=== PATIENT | male | born 1960 | race Asian ===

== ENCOUNTER 2017-09-21 18:46 | Emergency (ER) | payer OTHER, MEDICARE ==
[~2017-09-21] VITALS: Ht 162.6 cm; Wt 80.7 kg
--- NOTE | 2017-09-21 18:55 | NUR ---
Jelly farris in [facility] - 09/21/17 at 1856 by LETICIA PT CARRIED BY FATHER CINTHIA ETIENNE 1
--- NOTE | 2017-09-21 18:56 | NUR ---
PATIENT AMBULATED TO ER BED 10. Addendum: 09/21/17 at 4 by MEDDCV PATIENT AMBULATED TO ER BED 3.
[2017-09-21 18:59] VITALS: BP 97/64
--- NOTE | 2017-09-21 19:00 | NUR ---
PATIENT IS A 57 Y/O MALE WHO PRESENTS TO THE ED C/O BACK PAIN. PT STATES THAT HE HAS A HISTORY OF KIDNEY STONES AND IT FEELS LIKE IT IS STARTING UP AGAIN. PT REPORTS 6/10 SHARP BILATERAL FLANK PAIN THAT RADIATES TO THE LOWER ABD. PT DENIES CP, SOB, N/V/D. PT AAOX4, RR EVEN/UNLABORED. PT REPOSITIONED FOR COMFORT, BED IN LOWEST POSITION. ANN CRENSHAW NOTIFIED. WILL CONTINUE TO MONITOR. Addendum: 09/21/17 at 2009 by MEDDCV PATIENT IS A 57 Y/O MALE WHO PRESENTS TO THE ED C/O BACK PAIN. PT STATES THAT HE HAS A HISTORY OF KIDNEY STONES AND IT FEELS LIKE IT IS STARTING UP AGAIN. PT REPORTS 6/10 SHARP BILATERAL BACK PAIN THAT RADIATES TO THE LOWER ABD. PT DENIES CP, SOB, N/V/D. PT AAOX4, RR EVEN/UNLABORED. PT REPOSITIONED FOR COMFORT, BED IN LOWEST POSITION. ER MD DR. CRENSHAW NOTIFIED. WILL CONTINUE TO MONITOR.
--- NOTE | 2017-09-21 19:20 | NUR ---
UA COLLECTED AND SENT TO LAB.
[2017-09-21 20:07] LABS: BASOPHILS # (AUTO) 0.3 K/uL (0.00-0.22); EOSINOPHILS # (AUTO) 0.4 K/uL (0-0.4); HEMATOCRIT 39.5 % (36-52); LYMPHOCYTES # (AUTO) 1.5 K/uL (2.0-11.5); MEAN CORPUSCULAR HEMOGLOBIN 31 pg (27-31); MEAN CORPUSCULAR HGB CONC 33 g/dL (33-37); MEAN CORPUSCULAR VOLUME 93.2 fL (80-94); MONOCYTES # (AUTO) 0.8 K/uL (0.8-1.0); NEUTROPHILS # (AUTO) 4.3 K/uL (1.8-7.7); PLATELET COUNT (AUTO) 232 K/uL (140-450); RED BLOOD CELL COUNT(AUTO) 4.24 MIL/uL (4.20-6.10); RED CELL DISTRIBUTION WIDTH 13.4 % (11.6-13.7); WHITE BLOOD COUNT (AUTO) 7.3 K/uL (4.8-10.8)
[2017-09-21] MEDS ORDERED: KETOROLAC 30 MG/ML VIAL ONE (20:21)
[2017-09-21 20:33] LABS: ANION GAP 11.2 (8-16); CARBON DIOXIDE 29.2 mmol/L (21-32); CREATININE 1.7 mg/dL (0.7-1.3); POTASSIUM 4.4 mmol/L (3.5-5.1)
[2017-09-21] MEDS ORDERED: KETOROLAC 30 MG/ML VIAL IVP ONE (20:35)
[2017-09-21 20:40] LABS: ALBUMIN 3.7 g/dL (3.4-5.0); TOTAL BILIRUBIN 0.5 mg/dL (0.0-1.0)
--- NOTE | 2017-09-21 20:40 | NUR ---
PATIENT MOVED TO ER BED 1.
[2017-09-21 20:41] LABS: APPEARANCE,URINE CLEAR (CLEAR); BILIRUBIN,URINE NEGATIVE (NEGATIVE); BLOOD, URINE NEGATIVE (NEGATIVE); COLOR,URINE YELLOW (YELLOW); LEUKOCYTE ESTERASE ,URINE NEGATIVE (NEGATIVE); NITRITE, URINE NEGATIVE (NEGATIVE); UGLUCOSE NEGATIVE (NEGATIVE)
--- NOTE | 2017-09-21 21:23 | NUR ---
PT SENT TO CT WITH TECH VIA W/C AAOX4
--- NOTE | 2017-09-21 22:00 | NUR ---
PATIENT RESTING AT THIS TIME. FAMILY AT BEDSIDE.
--- NOTE | 2017-09-21 22:59 | NUR ---
PATIENT D/C BY DR. CRENSHAW.
[2017-09-21 23:00] VITALS: BP 121/75
--- NOTE | 2017-09-21 23:00 | NUR ---
Patient discharged with v/s stable. Written and verbal after care instructions given and explained. Patient alert, oriented and verbalized understanding of instructions. Ambulatory with steady gait. All questions addressed prior to discharge. ID band removed. Patient advised to follow up with PMD. Rx of NAPROSYN 500MG given. Patient educated on indication of medication including possible reaction and side effects. Opportunity to ask questions provided and answered.
== END 2017-09-21 23:00 | disposition home or self-care (01) ==
LOC: MED 18:46
DX: M51.17 Intervertebral disc disorders with radiculopathy, lumbosacral region (principal); I10 Essential (primary) hypertension; Z88.1 Allergy status to other antibiotic agents; Z88.8 Allergy status to other drugs, medicaments and biological substances
CPT/HCPCS: 36415; 72131; 74018; 74176; 80053; 80061; 81003; 85025; 96374; 99285; J1885

== ENCOUNTER 2021-07-11 19:06 | Emergency (ER) | payer OTHER, MEDICARE ==
[~2021-07-11] VITALS: Ht 165.1 cm; Wt 78.5 kg
[2021-07-11 19:28] VITALS: BP 96/64
--- NOTE | 2021-07-11 19:40 | NUR ---
PT IN LOBBY
--- NOTE | 2021-07-11 22:43 | NUR ---
PT TAKEN TO BED 11, AMBULATORY.
--- NOTE | 2021-07-11 22:44 | NUR ---
patient ambulated to bed 11
--- NOTE | 2021-07-11 22:47 | NUR ---
patient ambulated to the bathroom
[2021-07-11] MEDS ORDERED: LIDOCAINE MPF 1% 10 MG/ML VIAL INJ ONE (23:00)
[2021-07-11] MEDS ORDERED: IBUPROFEN 400 MG TAB PO ONE (23:00)
--- NOTE | 2021-07-11 23:02 | NUR ---
X-Ray at bedside.
--- NOTE | 2021-07-11 23:22 | NUR ---
Dr. Juarez examining patient.
--- NOTE | 2021-07-12 01:27 | NUR ---
PT R THUMB GAUZED W NONADHERENT PADDING AND WRAPPED.
[2021-07-12 01:34] VITALS: BP 122/71
--- NOTE | 2021-07-12 01:34 | NUR ---
Patient discharged with v/s stable. Written and verbal after care instructions given and explained. Patient verbalized understanding. Ambulatory with steady gait. ID band removed. All questions addressed prior to discharge. Advised to follow up with PMD.
== END 2021-07-12 01:34 | disposition home or self-care (01) ==
LOC: MED 19:06
DX: S61.011A Laceration without foreign body of right thumb without damage to nail, initial encounter (principal); M25.512 Pain in left shoulder; M25.562 Pain in left knee; M25.532 Pain in left wrist; S60.512A Abrasion of left hand, initial encounter; I48.91 Unspecified atrial fibrillation; E11.9 Type 2 diabetes mellitus without complications; I10 Essential (primary) hypertension; Z98.890 Other specified postprocedural states; Z88.1 Allergy status to other antibiotic agents; V19.9XXA Pedal cyclist (driver) (passenger) injured in unspecified traffic accident, initial encounter; Y93.55 Activity, bike riding; Y92.410 Unspecified street and highway as the place of occurrence of the external cause; Y99.8 Other external cause status
CPT/HCPCS: 12001; 73030; 73110; 73562; 90471; 90715; 99284; J2001; Q0092